=== PATIENT | male | born 1985 | race Caucasian/White ===

== ENCOUNTER 2018-02-25 09:46 | Emergency (ER) | payer OTHER ==
[~2018-02-25] VITALS: Ht 185.4 cm; Wt 67.0 kg
[2018-02-25 09:55] VITALS: BP 118/80
[2018-02-25] MEDS ORDERED: AZIT250T PO (10:20)
== END 2018-02-25 10:29 | disposition home or self-care (01) ==
LOC: ER 09:47
DX: J20.9 Acute bronchitis, unspecified (principal); J45.909 Unspecified asthma, uncomplicated; F12.90 Cannabis use, unspecified, uncomplicated; Z88.0 Allergy status to penicillin; Z79.2 Long term (current) use of antibiotics
CPT/HCPCS: 71045; 99283